=== PATIENT | male | born 1940 | race Caucasian/White ===

== ENCOUNTER 2016-12-10 21:15 | Inpatient (IN) ==
[2016-12-10] MEDS ORDERED: NS 1,000 ML IV PRN (22:11)
[2016-12-10 22:24] LABS: MANUAL DIFF NEEDED? NO
[2016-12-10 22:26] LABS: BASO% 0.7 % (0.0-0.8); EOS# 2.28 X1000 (0.0-0.7); EOS% 19.2 % (0.0-10.0); HEMATOCRIT 43.3 % (42.0-52.0); HEMOGLOBIN 13.1 g/dL (14.0-18.0); IMM GRAN# 0.03 X1000 (0.0-0.04); IMM GRAN% 0.3 % (0.0-0.5); LYMPH# 1.82 X1000 (1.2-3.4); LYMPH% 15.4 % (20.5-51.1); MCH 25.6 PG (27-31); MCHC 30.3 g/dL (33-37); MCV 84.7 FL (81-99); MONO# 0.61 X1000 (0.11-0.59); MONO% 5.1 % (1.7-9.3); MPV 9.7 FL (7.4-10.4); NEUT% 59.3 % (42.2-75.2); PLT 218 X1000 (130-400); RBC 5.11 XMIL (4.7-6.1)
[2016-12-10 22:45] LABS: ALBUMIN 3.9 g/dL (3.5-5.0); POTASSIUM 4.7 mmol/L (3.5-5.1); TOTAL BILIRUBIN 0.3 mg/dL (0.20-1.00); TOTAL PROTEIN 8.1 g/dL (6.3-8.3)
[2016-12-10 22:59] LABS: INR 0.98 (0.86-1.15); PROTIME 13.3 Seconds (12.1-15.5)
[2016-12-10 23:00] LABS: PTT PL 40.9 Seconds (22.6-43.9)
[2016-12-10] MEDS ORDERED: ZOFRAN PO PRN (23:03)
[2016-12-10] MEDS ORDERED: NS 1,000 ML IV ONE (23:03)
[2016-12-10 23:11] LABS: OCCULT BLOOD 1 POSITIVE (NEGATIVE)
--- NOTE | 2016-12-10 23:11 | PROVIDER DOCUMENTATION ---
This chart was entered by Roxy Fermin Scribe, acting as scribe for Clif Ortiz MD. HPI-Abdominal Pain/GI Problem - General Chief Complaint: GI Bleed Stated Complaint: MALE Time Seen by Provider: 12/10/16 22:27 Source: patient Allergies/Adverse Reactions: Patient Allergies Allergy/AdvReac Type Severity Reaction Status Date / Time Penicillins Allergy HIVES Verified 12/10/16 21:49 Sulfa (Sulfonamide Allergy Unknown Verified 12/10/16 21:49 Antibiotics) Home Medications: Home Medication List Medication Instructions Recorded Confirmed Last Taken Type Apixaban [Eliquis] 2.5 mg PO BID 12/10/16 12/10/16 12/10/16 History Aspirin 81 mg PO DAILY 12/10/16 12/10/16 12/10/16 History Budesonide/Formoterol Fumarate 1 puff IH BID 12/10/16 12/10/16 12/10/16 History [Symbicort 160-4.5 Mcg Inhaler] Carvedilol [Coreg] 3.125 mg PO BID 12/10/16 12/10/16 12/10/16 History Dexlansoprazole [Dexilant] 60 mg PO QHS 12/10/16 12/10/16 Unknown History Duloxetine HCl [Cymbalta] 30 mg PO DAILY 12/10/16 12/10/16 12/10/16 History Fluticasone 50 Mcg Nasal [place] 1 spray LISANDRO BID 12/10/16 12/10/16 12/10/16 History [Flonase] Isosorbide Mononitrate E.r. [Imdur] 60 mg PO BID 12/10/16 12/10/16 12/10/16 History Lamotrigine [Lamictal] 100 mg PO BID 12/10/16 12/10/16 12/10/16 History Lisinopril 20 mg PO DAILY 12/10/16 12/10/16 12/10/16 History Multivitamin [Multivitamins] 1 each PO DAILY 12/10/16 12/10/16 12/10/16 History Pregabalin [Lyrica] 100 mg PO BID 12/10/16 12/10/16 12/10/16 History SIMVAstatin [Zocor] 40 mg PO QHS 12/10/16 12/10/16 12/09/16 History Sotalol HCl [Sorine] 80 mg PO BID 12/10/16 12/10/16 12/10/16 History - History of Present Illness-ABD Nature of Presenting Problems: 76 year old M presents to the ED with a cc of diarrhea with an onset of last night. Pt states tonight around 1999 he noticed blood in his stool. Pt is on Eliquis. PT has a colonoscopy scheduled for Friday. Pt states that he had a CT on 11/25 and was told that he had thickening of the bowel. Severity in ED: reports: mild Onset/Duration: reports: 24 hours ago Timing: reports: still present Activities at Onset: reports: none Associated Symptoms: reports: diarrhea Emesis Description: reports: red blood Bruising or Bleeding Gums?: No Similar Symptoms Previously?: No Recently seen or treated by another doctor?: No Review of Systems - Adult - REVIEW OF SYSTEMS - ADULT Constitutional: denies: chills, fever Eyes: reports: no symptoms reported Ears, Nose, Mouth & Throat: reports: no symptoms reported Cardiovascular: reports: no symptoms reported Respiratory: reports: no symptoms reported Gastrointestinal: reports: diarrhea, rectal bleeding. denies: vomiting Genitourinary: denies: dysuria, hematuria Musculoskeletal: denies: muscle aches, muscle weakness Integumentary: reports: no symptoms reported Neurological: reports: no symptoms reported Psychiatric: reports: no symptoms reported Endocrine: reports: no symptoms reported Hematologic/Lymphatic: reports: no symptoms reported Allergic/Immunologic: reports: no symptoms reported All Other Systems: Reviewed and Negative Past History - Adult - PAST MEDICAL HISTORY-ADULT Review of Records: reports: Nursing Assessment Review, Medications Reviewed Major Childhood Illnesses: reports: denies history Cardiovascular: reports: cardiac disease, HTN, hyperlipidemia Respiratory: reports: sleep apnea Genitourinary: reports: other (CKF) - PRIOR SURGERIES/PROCEDURES Surgical/Procedure History: reports: CABG, pacemaker, back/neck - IMMUNIZATION STATUS Childhood Immunizations: See Nurse Assessment Flu Vaccine: See Nurse Assessment - SOCIAL HISTORY Smoking: non-smoker Substance Use: none/never Alcohol Use Frequency: never Physical Exam-General - PHYSICAL EXAM-ADULT Initial Vital Signs Reviewed: Yes - CONSTITUTIONAL General Appearance: appears well, alert, no apparent distress - RESPIRATORY Respiratory: chest non-tender, lungs clear, normal breath sounds - CARDIOVASCULAR Cardiovascular: normal peripheral pulses, regular rate, rhythm, no edema - GASTROINTESTINAL (ABDOMEN) Abdominal Exam: normal bowel sounds, tenderness (LLQ) - SKIN Integumentary: normal color, normal turgor, warm/dry - PSYCHIATRIC Psych/Mental Status: normal mood/affect, normal thought content, normal thought process, oriented x 3 Progress - PLAN OF CARE/RESULTS Progress/Plan/Lab Results: Vital Signs - 8 hr 12/10/16 21:42 Temperature 98.5 F Pulse Rate 70 Respiratory Rate 18 Blood Pressure 156/68 O2 Sat by Pulse Oximetry 94 L Laboratory Results - last 24 hr 12/10/16 12/10/16 12/10/16 22:10 22:10 22:10 WBC 11.85 H RBC 5.11 Hgb 13.1 L Hct 43.3 MCV 84.7 MCH 25.6 L MCHC 30.3 L RDW Std Deviation 16.5 H Plt Count 218 MPV 9.7 Immature Gran % (Auto) 0.3 Neut % (Auto) 59.3 Lymph % (Auto) 15.4 L [place] % (Auto) 5.1 Eos % (Auto) 19.2 H Baso % (Auto) 0.7 Immature Gran # (Auto) 0.03 Neut # (Auto) 7.03 H Lymph # (Auto) 1.82 [place] # (Auto) 0.61 H Eos # (Auto) 2.28 H Baso # (Auto) 0.08 Sodium 144 Potassium 4.7 Chloride 106 Carbon Dioxide 26 Anion Gap 12 BUN 47 H Creatinine 1.8 H Estimated GFR/1.73 m2 37 BUN/Creatinine Ratio 26 Glucose 170 H Calculated Osmolality 303 Calcium 9.0 Total Bilirubin 0.30 AST 16 ALT 31 Alkaline Phosphatase 205 H Total Protein 8.1 Albumin 3.9 Globulin 4.0 Albumin/Globulin Ratio 1.0 Blood Type O POSITIVE Orders Category Date Time Status Saline Loc DIRECTED Care 12/10/16 22:12 Active CBC WITH ELECTRONIC DIFF [HEME] Stat Lab 12/10/16 22:10 Completed COMPREHENSIVE METABOLIC PANEL [CHEM] Stat Lab 12/10/16 22:10 Completed OCCULT BLOOD NON-FECES PL Stat Lab 12/10/16 22:12 Uncollected OCCULT BLOOD SCREEN STOOL PL Stat Lab 12/10/16 22:12 Uncollected PROTIME WITH INR PL [COAG] Stat Lab 12/10/16 22:[address] [COAG] Stat Lab 12/10/16 22:10 Received TYPE & SCREEN [BBK] Stat Lab 12/10/16 22:10 Results 0.9% Sodium Chloride Inj [Ns] 1,000 ml Med 12/10/16 22:11 Active IV 125 mls/hr Result Diagrams: 12/10/16 22:10 12/10/16 22:10 - CONSULTS/PCP/HOSPITALIST Notification #1 *Consult/PCP/Hospitalist*: Dr. Flores(Hospitalist-[place]) Time Discussed: 22:49 Consult Disposition: other (admit to [facility]) #2 Consult: Dr. Jean-Baptiste(Hospitalist-[facility]) Time Discussed: 23:00 Consult Disposition: Admit Departure - Departure Time of Disposition Decision: 23:00 DIAGNOSIS: Lower GI bleeding Disposition: ADMITTED INPATIENT 09 Certified Medical Emergency: Emergent Condition: Stable Referrals and Follow-Ups: Mark Elliott MD [Primary Care Provider] - - Critical Care Note This patient required my direct & personal management of CC.: No This chart was documented by the indicated scribe, (Roxy Fermin Scribe) and accurately reflects the services I performed and decisions made by me, Clif Ortiz MD, as attested by the provider's signature.
[2016-12-11] MEDS ORDERED: APRESOLINE IV PRN (01:27)
[2016-12-11] MEDS ORDERED: ZOFRAN IV PRN (01:33)
[2016-12-11] MEDS ORDERED: TYLENOL PO PRN (01:33)
[2016-12-11] MEDS: ROCEPHIN 1 GM/NS 1 GM/50 ML IVPB IV SCH (02:41)
[2016-12-11] MEDS: FLAGYL 500 MG/NS 500 MG/100 ML IVPB IV SCH ×3 (02:41→17:41)
--- NOTE | 2016-12-11 04:21 | HISTORY AND PHYSICAL ---
PRIMARY CARE PROVIDER: Dr. Mark Elliott. CHIEF COMPLAINT: Rectal bleeding and diarrhea. HISTORY OF PRESENT ILLNESS: Mr. Jeffrey is a 76-year-old male with a past medical history most notable for extensive cardiac disease, with status post CABG in 1997. He also has a pacemaker placement, as well as a history of atrial fibrillation, currently on Eliquis. He also has a history of hypertension, hyperlipidemia, and chronic kidney disease. The patient reports that on 12/09, that he began having diarrhea. This was a normal brown color at that time. He reports that approximately 24 hours later on 12/10, he began having bloody stools. Due to this, the patient did present to the ER at [facility] for further evaluation. He was found to have Hemoccult-positive stool. The patient did just recently receive a CT thorax without contrast for further evaluation of a possible tracheoesophageal fistula. During the CT, there was noted per Radiology that there was significant wall thickening/colitis of the transverse colon and hepatic flexure. The patient had already been seen by Dr. Melchor, and was scheduled for a colonoscopy this coming Friday. The patient denies any recent opud-fsk-jzzhiiv medication use, though did report that he has had one new prescription of Dexilant that he started approximately 5 days ago. At this time, he denies any abdominal pain. He denies any nausea, vomiting. He also denies any fever, body aches, or chills. He has not had any recent travel, and denies being around anyone in the family who is sick, who has had similar symptoms as him. At this time, the patient was transferred to [facility] for admission and further evaluation of his gastrointestinal bleed, as well as colitis. REVIEW OF SYSTEMS: A 12-point review of systems was conducted with the patient. All were negative, except for pertinent positives mentioned above in HPI. PAST MEDICAL HISTORY: 1. Hypertension. 2. Hyperlipidemia. 3. Pacemaker placement. 4. Coronary artery disease, status post CABG in 1997. The patient denies any history of cardiac stents. 5. Abdominal aortic aneurysm. 6. Previous right lower extremity DVT. 7. Chronic kidney disease. 8. Gastroesophageal reflux disease. 9. Sleep apnea, reporting that he wears CPAP at night. 10. Spinal stenosis. 11. Neuropathy. 12. Kidney stones. 13. Asthma PAST SURGICAL HISTORY: 1. Coronary artery bypass graft in 1997. 2. Pacemaker placement. 3. Low back surgery for spinal stenosis. The patient does report that he has some residual weakness in the bilateral lower extremities since his surgery approximately 1 year ago. SOCIAL HISTORY: Patient currently lives at home with his . He has no past or present history of tobacco, alcohol, or illicit drug use. FAMILY HISTORY: Positive for his mother having a history of diabetes mellitus, congestive heart failure, and hypertension. His father had a history of stroke. He does have 7 siblings who have a medical history of heart disease, diabetes mellitus, as well as asthma. ALLERGIES: Patient reports allergies to penicillin, stating it caused him to have a rash. Also, an allergy to sulfa. HOME MEDICATIONS: 1. Eliquis 2.5 mg p.o. b.i.d. 2. Aspirin 81 mg p.o. daily. 3. Symbicort 160-2.5 mcg inhaler, 1 puff inhaled twice a day. 4. Coreg 3.125 mg p.o. b.i.d. 5. Dexilant 60 mg p.o. at bedtime. 6. Cymbalta 30 mg p.o. daily. 7. Flonase 1 spray in bilateral nares twice a day. 8. Imdur 60 mg p.o. b.i.d. 9. Lamictal 100 mg p.o. b.i.d. 10. Lisinopril 20 mg p.o. daily. 11. Multivitamin 1 p.o. daily. 12. Lyrica 100 mg p.o. b.i.d. 13. Zocor 40 mg p.o. at bedtime. 14. Sotalol 80 mg p.o. b.i.d. DIAGNOSTIC DATA AND LABORATORY RESULTS: White blood cell count 11.85, hemoglobin 13.1, hematocrit 43.3, platelet count 218,000. PT 13.3, INR 0.98. PTT is 40.9. Sodium 144, potassium 4.7, chloride 106, bicarbonate 26, BUN 47, creatinine 1.8, with GFR of 37. Glucose 170. Calcium 9. Total bilirubin 0.3, AST 16, ALT 31, alkaline phosphatase 205. Hemoccult stool was positive. Pending diagnostic studies at this time are stool studies, hemoglobin A1c, and EKG. PHYSICAL EXAMINATION: VITAL SIGNS: Temperature 97.7 degrees, heart rate 69, respirations 20, blood pressure 199/76. Oxygen saturation is 99% nasal cannula at 2 L. GENERAL: Mr. Jeffrey is a very pleasant 76-year-old male who is resting comfortably in the inpatient bed. He was awake, alert, and able to answer all questions appropriately. He was in no acute distress. HEENT: Head is atraumatic, normocephalic. Pupils are equal, round, reactive to light, 3 mm bilaterally and brisk. Sclerae were white. No lesions noted. Subconjunctivae were pink. Oral mucosa was moist. Oropharynx clear. NECK: Supple. Trachea midline. CARDIOVASCULAR: Patient has normal S1, S2. No murmurs, gallops, or rubs appreciated, with a regular rate and rhythm. Per the patient's cardiac monitor, he does have a paced rhythm noted. PULMONARY: Patient has symmetrical chest expansion bilaterally. Lung sounds in bilateral full barnett did have wheezing noted. ABDOMEN: Soft. Does not appear to be distended, but the patient does have a protuberant abdomen noted. He did have some tenderness upon palpation in the left lower quadrant. No rebound tenderness noted. Bowel sounds were present all 4 quadrants. Normoactive. EXTREMITIES: No cyanosis or clubbing noted. The patient did have some slight edema noted in his left lower extremity, approximately mid calf down. The patient did have +1 pitting edema noted in his right lower extremity from mid calf down. The pulse, motor, and sensory were intact in all extremities. Pedal pulses were 3+ bilaterally. Capillary refill was less than 3. INTEGUMENTARY: The patient's skin is pink, warm, dry, and intact. No lesions or sores noted. NEUROLOGICAL: Patient is alert and oriented x4. Cranial nerves 2-12 are grossly intact. ASSESSMENT AND PLAN: 1. Lower gastrointestinal bleed. For this, we have consulted Dr. Melchor with Gastroenterology, and we will await his evaluation and further recommendations. Patient has been placed on a clear liquid diet. We have collected a type and screen. We will closely monitor his hemodynamic status and repeat a hemoglobin and hematocrit in the morning. 2. Colitis. We will place the patient on Rocephin and Flagyl IV. At this time , we have not ordered any further imaging studies, given that the patient did just recently have a CT performed. We will wait until he is evaluated by Dr. Melchor with Gastroenterology, and await his further recommendations. We have also ordered for the patient to have stool studies performed. 3. Coronary artery disease, status post coronary artery bypass grafting. The patient denied any history of stents. At this time, we have held his aspirin as well. 4. History of atrial fibrillation. We will hold the patient's Eliquis at this time, and will continue his sotalol and his Coreg. 5. Hypertension. We will continue his lisinopril. 6. Hyperlipidemia. We will continue his Zocor. 7. Chronic kidney disease. Unfortunately, we do not have any previous laboratory results to compare his current kidney function to, though we will closely monitor his renal function and will renally dose medications as necessary, and continue to follow. 8. Neuropathy. Will continue his Lamictal and Lyrica. 9. Gastroesophageal reflux disease. The patient was previously taking Dexilant for this, though this was a new medication started approximately 5 days ago. Shortly after starting this medicine, the patient did have some diarrhea. Since this can be a side effect of this medication, we have stopped this at this time, and we will place the patient on Pepcid 20 mg p.o. daily instead and we will continue to follow. The patient will be placed on CIC with telemetry. He will have vital signs q.4 hours. Will do strict intake and output. We will provide DVT prophylaxis with SCDs. The patient does have a history of asthma, and does have some wheezing noted upon auscultation. We will place DuoNeb treatments q.4-6 hours p.r.n. as needed. Further orders and recommendations pending hospital course, diagnostic studies, and physician evaluation. Dictated by LIO Franklin for Wesley Rivera MD Seen and examined pt, discussed case with MANAGER COMMUNICATION. cc: Wesley Rivera MD [facility]
[2016-12-11] MEDS ORDERED: CALMOSEPTINE OINTMENT TOP PRN (04:25)
[2016-12-11 05:29] LABS: BASO% 0.5 % (0.0-0.8); HEMATOCRIT 38.1 % (42.0-52.0); HEMOGLOBIN 11.6 g/dL (14.0-18.0); IMM GRAN# 0.03 X1000 (0.0-0.04); IMM GRAN% 0.3 % (0.0-0.5); MANUAL DIFF NEEDED? NO; MCH 26.1 PG (27-31); MCHC 30.4 g/dL (33-37); MCV 85.6 FL (81-99); RBC 4.45 XMIL (4.7-6.1)
[2016-12-11 05:54] LABS: CALCIUM 9.1 mg/dL (8.8-10.2); POTASSIUM 5.6 mmol/L (3.5-5.1)
[2016-12-11 06:22] LABS: EOS% 15.5 % (0.0-10.0); LYMPH# 1.64 X1000 (1.2-3.4); MONO# 0.59 X1000 (0.11-0.59); MONO% 5.4 % (1.7-9.3); MPV 10.1 FL (7.4-10.4); NEUT% 63.3 % (42.2-75.2); PLT 158 X1000 (130-400)
--- NOTE | 2016-12-11 07:03 | EKG Report ---
Test Performed on : 12/11/2016 06:32:29 AM Test Reason : GI Bleed, Poss. Surgical Patient Blood Pressure : / mmHG Vent. Rate : 070 BPM Atrial Rate : 070 BPM P-R Int : 000 ms QRS Dur : 168 ms QT Int : 464 ms P-R-T Axes : 000 -77 086 degrees QTc Int : 501 ms Ventricular-paced rhythm Abnormal ECG No previous ECGs available Confirmed by Pelon MONGE, Quirino Woodward ([id number]) on 12/15/2016 12:36:48 PM
[2016-12-11] MEDS: THERA M PLUS PO SCH (08:10)
[2016-12-11] MEDS: PRINIVIL PO SCH (08:10)
[2016-12-11] MEDS: COREG PO SCH ×2 (08:10→21:07)
[2016-12-11] MEDS: LYRICA PO SCH ×2 (08:10→21:07)
[2016-12-11] MEDS: BETAPACE PO SCH ×2 (08:10→21:07)
[2016-12-11] MEDS: IMDUR PO SCH ×2 (08:11→21:07)
[2016-12-11] MEDS: FLONASE NAS SCH ×2 (08:11→21:39)
[2016-12-11] MEDS: CYMBALTA PO SCH (08:11)
[2016-12-11] MEDS: LAMICTAL PO SCH ×2 (08:11→21:07)
--- NOTE | 2016-12-11 08:41 | PROGRESS NOTE ---
DATE: 12/11/2016 SUBJECTIVE: Mr. Jeffrey was admitted late last night. Apparently he has had a couple days of loose stool and diarrhea. Yesterday evening notice bright red blood in the diarrhea. Denies any rectal pain or hemorrhoids. His doctor is Dr. Mark Elliott. He apparently is followed with Dr. Mario Melchor and was planning on doing a colonoscopy and EGD next week, I believe. PAST MEDICAL HISTORY: 1. Hypertension. 2. Hyperlipidemia. 3. Pacemaker placement. 4. Coronary artery disease, status post CABG in 1997. Denies any history of cardiac stents. 5. Abdominal aortic aneurysm. 6. Previous right lower extremity DVT. 7. Chronic kidney disease. 8. Gastroesophageal reflux disease. 9. Sleep apnea, reporting wears CPAP at night. 10. Spinal stenosis. 11. Neuropathy. 12. Kidney stones. PAST SURGICAL HISTORY: 1. Coronary artery bypass graft in 1997. 2. Pacemaker placement. 3. Low back surgery for spinal stenosis. The patient does report that he has some residual weakness in bilateral lower extremities since his surgery approximately a year ago. 4. Admitted with a lower gastrointestinal bleed. Dr. Mario Melchor is consulted. He has a little bit of colitis and he has been put on Rocephin and Flagyl. Recently had a CT performed so did not perform any further studies. I think previous CT suggested some colitis. Dr. Mario Melchor is following that. 5. Coronary artery disease status post coronary artery bypass grafting. Aware. 6. History of atrial fibrillation. We are holding his Eliquis at this time. 7. Hypertension. 8. Hyperlipidemia. 9. Chronic kidney disease, that we will watch. 10. Neuropathy. 11. Gastroesophageal reflux disease. 12. Lumbar sacral stenosis. He has had lower back surgery. Had some lower leg weakness, residual weakness, from a year ago. PHYSICAL EXAMINATION: General Appearance: On his exam today he was awake and alert. Afebrile. Temp 98.1 degrees, pulse 67, respirations 16, blood pressure 169/75. Lungs: Clear in all lung barnett. Cardiovascular: Regular rhythm and rate without murmur or S3. Abdomen: Soft. Skin: Is warm and dry. Weight 194 pounds. BLOOD WORK: White count 10,940, hematocrit 38, hemoglobin 11.6, platelet count a 158,000. Sodium 144, potassium 5.6, chloride 109. BUN 43, creatinine 1.7, blood sugar 167, calcium 9.1. ProTime 13.3, INR 9.8. PTT was 40. Stool sample positive. ASSESSMENT AND PLAN: As above. Review orders. I do not see any changes at this point. He is on Betapace 80 mg b.i.d., Zocor 40 mg at bedtime, Rocephin 1 g IV q.24 hours, Lyrica 100 mg b.i.d., multivitamin one a day, lisinopril 20 mg a day, Lamictal 100 mg b.i.d., isosorbide 60 mg b.i.d., Apresoline 10 mg IV q.6 hours p.r.n. hypertension, fluticasone nasal spray or Flonase 1 puff b.i.d., Flagyl 500 mg IV q.8 hours, Pepcid 20 mg a day, Cymbalta 30 mg a day, Coreg 3.125 mg b.i.d., Symbicort 1 puff b.i.d. cc: Unruly Amin MD
[2016-12-11] MEDS ORDERED: PEPCID PO SCH (09:00)
[2016-12-11] MEDS: SYMBICORT 160/4.5 MICROGM INHALER INH SCH ×2 (13:35→19:36)
--- NOTE | 2016-12-11 15:52 | CONSULTATION ---
DATE OF CONSULTATION: 12/11/2016 REQUESTING PHYSICIAN: Unruly Amin MD. PRIMARY CARE DOCTOR: Mark Elliott MD. REASON FOR CONSULTATION: Blood in the stool and anemia. HISTORY OF PRESENT ILLNESS: Mr. Jeffrey is a 76-year-old male who has a known history of atrial fibrillation status post pacemaker placement, coronary artery disease status post CABG in 1997, abdominal aortic aneurysm being followed by Dr. Snyder. He is on chronic aspirin 81 mg a day and Eliquis at home. The patient developed an upset stomach which is described as cramping in the upper abdomen along with change in bowel habits along with diarrhea. Yesterday the patient was noted to have light red color liquid stool along with incontinence. This was noted by patient's as well and patient was brought to the ER. The patient was found to have positive Hemoccult stool. The patient since being in the hospital has felt better. His hemoglobin and hematocrit dropped but he did not require a blood transfusion. He denied any nausea, vomiting, or vomiting blood. PAST MEDICAL HISTORY: 1. Hypertension. 2. Hyperlipidemia. 3. Coronary artery disease. 4. Abdominal aortic aneurysm. 5. Right lower extremity DVT. 6. Chronic kidney disease. 7. Gastroesophageal reflux. 8. Sleep apnea. 9. Spinal stenosis. 10. Neuropathy. 11. Kidney stones. PAST SURGICAL HISTORY: 1. Coronary bypass graft and 1998. 2. Pacemaker placement. 3. CABG. 4. Low back surgery for spinal stenosis. 5. Patient had a EGD and colonoscopy 7 years ago. SOCIAL HISTORY: He currently lives at home with his . The is currently present at bedside. No history of alcohol, tobacco or illicit drug use. He denies any fevers, rigors, chills, chest pain, shortness of breath, dyspnea at rest. Denies any genitourinary complaints. He does have a history of chronic arthritis of the back and some weakness in the lower extremities. FAMILY HISTORY: Noncontributory. ALLERGIES: Penicillin and sulfa. HOME MEDICATIONS: 1. Eliquis 2.5 mg p.o. b.i.d. 2. Aspirin 81 every day. 3. Symbicort 1 puff inhaled twice daily. 4. Coreg 3.125 mg p.o. b.i.d. 5. Dexilant 60 mg at bedtime. 6. Cymbalta 30 mg p.o. daily. 7. Flonase 1 spray bilateral twice daily. 8. Imdur 60 mg p.o. b.i.d. 9. Lamictal 100 mg p.o. b.i.d. 10. Lisinopril 20 mg p.o. daily. 11. Multivitamin once daily. 12. Lyrica 100 mg p.o. b.i.d. 13. Zocor 40 mg p.o. 1 at bedtime. 14. Sotalol 80 mg p.o. b.i.d. MEDICATIONS IN HOSPITAL: 1. Tylenol #2. 2. Budesonide/formoterol 1 puff inhaled b.i.d. 3. Coreg 3.125 mg b.i.d. 4. Cymbalta 30 mg p.o. once daily. 5. Flagyl 5 mg IV q. 8 hours. 6. Fluticasone 50 mcg inhaled b.i.d. 7. Hydralazine 10 mg IV q.6 hours. 8. Isosorbide Mononitrate 60 mg p.o. b.i.d. 9. Lamictal 100 mg p.o. b.i.d. 10. Lisinopril 20 mg p.o. once daily. 11. Menthol/zinc oxide ointment topical as needed. 12. Multivitamin once daily. 13. Zofran 4 mg IV every 4 hours as needed. 14. Protonix 40 mg IV q.12 hours. 15. Lyrica 100 mg 1 p.o. b.i.d. 16. Ceftriaxone 1 g IV 24 hours. 17. Zocor 40 mg p.o. at bedtime. 18. Sotalol 80 mg p.o. b.i.d. 19. IV fluids with normal saline. 20. He is on a clear liquid diet. PHYSICAL EXAMINATION: Weight/height: Temperature 98.1, pulse of 61, respiratory 18, blood pressure of 169/75, saturating 90% on room air. Body weight of 194 pounds 6.4 ounces. BMI of 27 kg/m2. General Appearance: Moderately nourished, lying in bed, in no acute distress. HEENT: Pale conjunctivae. No icterus. Pupils equal, reactive to light. Neck: Supple. Cardiac: Regular rate and rhythm. No murmur. Abdomen: Soft, nontender, nondistended bowel sounds. No rebound. Extremities: No cyanosis or clubbing. Neurologic: Alert, awake, oriented. LABS: Hemoglobin and hematocrit is 11.6 and 38.1, white count of 10.94, platelet count of 158,000. MCV of 85.6, INR of 0.98, PT of 13.3, PTT of 40.9, sodium 144, potassium 5.6, chloride 109, bicarbonate 26, anion gap 9, BUN of 40, creatinine 1.7, glucose of 167, calcium 9.1, total bilirubin is 0.30, AST 16, ALT 31, and total protein is 8.1, albumin of 3.9. Stool for occult blood was positive. DIAGNOSTIC: 1. He had a chest CT done on 11/23/2016. At that time it picked up significant wall thickening of the transverse colon, especially the hepatic flexure, compatible with some chronic colitis. 2. No free fluid or free air noted. 3. No mass or adenopathy. 4. Some normal size today left nodes on the right side noted. There are CABG changes. Dual chamber pacemaker in good position. There are small cysts in the thyroid gland which were normal in size. The air in the esophagus was normal. There is heterogeneous attenuation of the lungs compatible with scattered small airway disease. 5. Small granuloma in the upper lobes bilaterally. No infiltrates. There are moderate degenerative changes of the spine. No acute or suspicious bony lesions noted. IMPRESSION AND PLAN: 1. Abdominal cramping with diarrhea that felt like an upset stomach with a positive Hemoccult and blood in the stool along with elevated BUN and creatinine suspicious for upper gastrointestinal bleeding. The patient is on aspirin, Eliquis which makes him prone to have peptic ulcer disease. We need to evaluate for that. 2. Previous CT scan of the chest done on 11/23/2016 showed evidence of thickening of the wall of the hepatic flexure, transverse colon suggestive of chronic colitis. 3. Mild anemia. 4. Coronary artery disease status post coronary artery bypass graft, on aspirin and Eliquis being monitored by Dr. Snyder. 5. History of reflux disease. RECOMMENDATIONS: 1. We will keep a close eye on patient's hemoglobin and hematocrit. 2. We will check a CBC in the morning. Patient's aspirin and Eliquis have been held so far since he is in the hospital. 3. We will check stool studies. So far the stool studies are negative for C. difficile toxin A and B, stool for white cells are few, stool culture is pending and stool for occult blood was positive. Try patient on Protonix IV b.i.d. 4. We will schedule patient for EGD tomorrow to evaluate upper GI source of bleeding. 5. We will continue IV fluids and clear liquid diet for now. If the EGD is negative, he will definitely need a colonoscopy. 6. The patient will continue on his home medications for now other than blood thinners until his hematocrit stabilizes. 7. The above plan was discussed with the patient and family. All questions were answered. cc: MD Mark Rebolledo MD Allen J. Schmidt, MD Luis N. Villanueva, MD MTDD
[2016-12-11] MEDS: PROTONIX IV SCH (16:23)
[2016-12-11] MEDS: SODIUM CHLORIDE 0.9% INJ SCH (16:23)
[2016-12-11] MEDS: ZOCOR PO SCH (21:07)
[2016-12-12] MEDS: SODIUM CHLORIDE 0.9% INJ SCH ×2 (02:26→14:54)
[2016-12-12] MEDS: PROTONIX IV SCH ×2 (02:26→14:54)
[2016-12-12] MEDS: FLAGYL 500 MG/NS 500 MG/100 ML IVPB IV SCH ×3 (02:27→17:49)
[2016-12-12] MEDS: ROCEPHIN 1 GM/NS 1 GM/50 ML IVPB IV SCH (02:27)
[2016-12-12] MEDS: BETAPACE PO SCH ×2 (08:00→20:15)
[2016-12-12] MEDS: COREG PO SCH ×2 (08:00→20:15)
[2016-12-12] MEDS ORDERED: D50W SYRINGE IV ONE (08:01)
[2016-12-12] MEDS ORDERED: HUMULIN R IV ONE (08:01)
[2016-12-12] MEDS ORDERED: SODIUM BICARBONATE 8.4% IV PUSH ONE (08:01)
[2016-12-12] MEDS: IMDUR PO SCH ×2 (08:01→20:15)
[2016-12-12] MEDS: PRINIVIL PO SCH (08:01)
--- NOTE | 2016-12-12 08:33 | PROGRESS NOTE ---
DATE: 12/12/2016 SUBJECTIVE: Mr. Jeffrey had a good night. He is having some pain in his left hand at the 3rd metatarsal that is tender and it appears to be consistent with gout. OBJECTIVE: Vital signs: Temperature 97.5 degrees, pulse 66, respirations 20, blood pressure 166/74. HEENT: The pupils are equal, round. Lungs: Clear in all lung barnett. Abdomen: Soft. Skin is warm and dry. Urine output 2200 mL. LAB: Reviewed from this morning. White count 10,940, hematocrit 38, platelet count a 158,000. Sodium 144, potassium 5.6, chloride 109, bicarb 26, BUN 43, creatinine 1.7. ASSESSMENT AND PLAN: 1. Abdominal cramping and diarrhea. [place] like an upset stomach with positive Hemoccult. Blood in the stool. Elevated BUN and creatinine, suspicious for upper gastrointestinal bleeding. Patient is on aspirin and Eliquis, which has been held. The plan is to do an esophagogastroduodenoscopy this morning. 2. Previous CT of the chest done on 11/23/2016 showed evidence of thickening of the wall of the hepatic flexure and transverse colon, suggestive of chronic colitis. So, the plan is to do a colonoscopy, I think tomorrow. 3. Mild anemia. 4. Coronary artery disease status post coronary bypass graft. He is on aspirin and Eliquis which has been held. 5. History of reflux disease. 6. Inflammation in the left 3rd metatarsal. We will need to avoid nonsteroidal medications right now. I May give him some IV Solu-Medrol and see if that will help. 7. Chronic renal insufficiency. Serum creatinine 1.7. Note, his potassium was a little bit high. Anesthesia wanted us to address this before he goes to esophagogastroduodenoscopy; so I will give him 1 amp of D50 and 10 units of insulin and an amp of bicarb and repeat his basic metabolic profile. cc: Unruly Amin MD
[2016-12-12] MEDS: SYMBICORT 160/4.5 MICROGM INHALER INH SCH ×2 (09:11→19:40)
[2016-12-12] MEDS ORDERED: DIPRIVAN 1% ONE (10:35)
[2016-12-12] MEDS ORDERED: XYLOCAINE-MPF 2% ONE (10:45)
--- NOTE | 2016-12-12 10:54 | OPERATIVE NOTE ---
PROCEDURE DATE: 12/12/2016 DATE OF SERVICE: 12/12/2016. REFERRING PHYSICIAN: Dr. Palencia. PRIMARY CARE DOCTOR: Dr. Elliott. PROCEDURE: Esophagogastroduodenoscopy. PREOPERATIVE DIAGNOSES: 1. Maroon stools. 2. Anemia. 3. History of coronary disease, atrial fibrillation on aspirin 81 mg a day and Eliquis 2.5 b.i.d. 4. History of reflux disease. POSTOPERATIVE DIAGNOSES: 1. Mild candidal esophagitis of distal esophagus. 2. Z-line visualized at 41 cm. 3. Evidence of gastritis in the body and antrum, erosive type, moderate degree. Retroflexion revealed normal fundus, cardia, incisura. Bile in the stomach, small amount. 4. Normal duodenal bulb, second portion of duodenum. 5. Prominent ampulla noted. ESTIMATED BLOOD LOSS: None. COMPLICATIONS: None. ANESTHESIA: Monitored anesthesia care per the anesthesiologist. SPECIMEN: None. DESCRIPTION OF PROCEDURE IN DETAIL: After informed consent, patient and family explained the risks, benefits, indications, alternatives, the patient agree for EGD. The patient was brought to the OR. He was turned in the left lateral position. A bite block was placed in patient's mouth. After adequate monitored anesthesia care, the operative scope was introduced and was traversed all the way to the second portion of the duodenum. The esophagus was normal at the proximal and middle third. This did not show evidence of whitish exudates on the surface of the esophagus suggesting Renae esophagitis. The Z-line was at 41 cm. There was no evidence of varices or ulcers. The stomach showed evidence of some bile which was suctioned out. There was evidence of erythema, friability, and erosions in the body suggesting erosive gastritis. Retroflexion revealed normal fundus, cardia, incisura. The duodenal bulb and second portion of duodenum appeared normal. The ampulla was prominent. There was noted no active bleeding , fresh or old blood noted in the entire EGD. The air was withdrawn from the scope. The patient tolerated the procedure well and monitored in the OR in stable condition. I discussed the findings with the patient's family in the waiting area and all questions answered. RECOMMENDATION: The patient will be on clear liquid diet today. We will start him on GoLYTELY at 12 noon and we will make him n.p.o. past midnight and schedule for colonoscopy tomorrow morning. Will check CBC today and check it every 6 hours. Type and cross, and transfuse to keep hematocrit more than 27%. We will keep on Protonix twice daily. We will hold the blood thinners for now until hematocrit stabilizes. Stool studies have so far been unrevealing. There was a questionable colitis seen on last imaging in November. It could be ischemic colitis; will investigate further with a colonoscopy scheduled for tomorrow. Further recommendations follow pending above. cc: MD Bhavin Rebolledo MD John V. Irle, MD MTDD
[2016-12-12] MEDS: CYMBALTA PO SCH (11:09)
[2016-12-12] MEDS: LYRICA PO SCH ×2 (11:09→20:15)
[2016-12-12] MEDS: THERA M PLUS PO SCH (11:09)
[2016-12-12] MEDS: LAMICTAL PO SCH ×2 (11:10→20:15)
[2016-12-12] MEDS: SOLU-MEDROL IV SCH ×3 (11:10→23:50)
[2016-12-12] MEDS: FLONASE NAS SCH ×2 (11:10→20:14)
[2016-12-12] MEDS ORDERED: GOLYTELY PO ONE (16:45)
[2016-12-12 17:50] LABS: BASO% 0.4 % (0.0-0.8); EOS# 0.14 X1000 (0.0-0.7); EOS% 1.8 % (0.0-10.0); HEMOGLOBIN 11.8 g/dL (14.0-18.0); LYMPH# 0.65 X1000 (1.2-3.4); LYMPH% 8.5 % (20.5-51.1); MANUAL DIFF NEEDED? YES; MCH 25.5 PG (27-31); MCHC 30.3 g/dL (33-37); MCV 84.4 FL (81-99); MONO# 0.06 X1000 (0.11-0.59); MONO% 0.8 % (1.7-9.3); MPV 9.4 FL (7.4-10.4); NEUT% 88.5 % (42.2-75.2); PLT 169 X1000 (130-400); RBC 4.62 XMIL (4.7-6.1)
[2016-12-12 17:59] LABS: LYMPHS 12 % (21-51)
[2016-12-12] MEDS: ZOCOR PO SCH (20:15)
[2016-12-13 00:05] LABS: BASO% 0.1 % (0.0-0.8); HEMATOCRIT 36.4 % (42.0-52.0); HEMOGLOBIN 11.4 g/dL (14.0-18.0); IMM GRAN# 0.03 X1000 (0.0-0.04); IMM GRAN% 0.4 % (0.0-0.5); LYMPH# 0.79 X1000 (1.2-3.4); LYMPH% 11.2 % (20.5-51.1); MANUAL DIFF NEEDED? YES; MCH 26.1 PG (27-31); MCHC 31.3 g/dL (33-37); MCV 83.5 FL (81-99); MONO# 0.07 X1000 (0.11-0.59); MPV 9.4 FL (7.4-10.4); NEUT% 87.3 % (42.2-75.2); PLT 180 X1000 (130-400); RBC 4.36 XMIL (4.7-6.1)
[2016-12-13 00:25] LABS: LYMPHS 10 % (21-51); MONO 4 % (1-9)
[2016-12-13 00:27] LABS: LARGE PLATELETS OCCASIONAL; POLYCHROM OCCASIONAL
[2016-12-13] MEDS: ROCEPHIN 1 GM/NS 1 GM/50 ML IVPB IV SCH (02:21)
[2016-12-13] MEDS: PROTONIX IV SCH ×2 (02:22→13:37)
[2016-12-13] MEDS: FLAGYL 500 MG/NS 500 MG/100 ML IVPB IV SCH ×3 (03:40→17:40)
[2016-12-13 06:34] LABS: BASO% 0.1 % (0.0-0.8); HEMATOCRIT 37.9 % (42.0-52.0); HEMOGLOBIN 11.9 g/dL (14.0-18.0); LYMPH% 10.6 % (20.5-51.1); MANUAL DIFF NEEDED? YES; MCHC 31.4 g/dL (33-37); MCV 82.8 FL (81-99); MONO# 0.08 X1000 (0.11-0.59); MONO% 1.1 % (1.7-9.3); MPV 9.9 FL (7.4-10.4); NEUT% 88.2 % (42.2-75.2); PLT 167 X1000 (130-400); RBC 4.58 XMIL (4.7-6.1)
[2016-12-13 07:05] LABS: BANDS 10 % (0-1); LYMPHS 4 % (21-51); MONO 2 % (1-9)
[2016-12-13] MEDS: SYMBICORT 160/4.5 MICROGM INHALER INH SCH (07:19)
[2016-12-13] MEDS: FLONASE NAS SCH (08:09)
[2016-12-13] MEDS: LYRICA PO SCH ×3 (08:10→13:42)
[2016-12-13] MEDS: SOLU-MEDROL IV SCH ×2 (08:11→16:06)
[2016-12-13] MEDS: THERA M PLUS PO SCH ×3 (08:12→13:42)
[2016-12-13] MEDS: COREG PO SCH ×3 (08:12→13:41)
[2016-12-13] MEDS: IMDUR PO SCH ×3 (08:12→13:41)
[2016-12-13] MEDS: LAMICTAL PO SCH ×3 (08:12→13:41)
[2016-12-13] MEDS: PRINIVIL PO SCH ×3 (08:12→13:42)
[2016-12-13] MEDS: BETAPACE PO SCH ×3 (08:12→13:40)
[2016-12-13] MEDS: CYMBALTA PO SCH ×3 (08:12→13:42)
--- NOTE | 2016-12-13 09:43 | PROGRESS NOTE ---
DATE: 12/13/2016 SUBJECTIVE: He has had a rough night. He got all of his GoLYTELY down and is ready for colonoscopy. OBJECTIVE: Vital Signs: Temp 98.1 degrees, pulse 60, respirations 18, blood pressure 185/74 pounds. HEENT: Pupils are equal. CVP less than 6 cm. Lungs: Clear in all lung barnett. Cardiovascular: Regular rhythm and rate without murmurs or S3. : Urine output 2700 mL. LAB: White count 7560, hematocrit 37. Platelet count 167,000. Sodium 144, potassium 5.6, chloride 109, bicarb 26, BUN 43, creatinine 1.7. ASSESSMENT AND PLAN: 1. Abdominal cramping and diarrhea. Upset stomach, positive occult, blood in stool. Elevated BUN and creatinine suspicious for upper gastrointestinal bleed. 2. He has had an esophagogastroduodenoscopy. Found gastritis and duodenitis. The patient was on aspirin and Eliquis. This was held for a short time. He is going to get a colonoscopy today. He had a previous CT of the chest done on 11/23/2016 that showed evidence of thickening of the wall of the hepatic flexure and transverse colon suggestive of chronic colitis 3. Anemia. He is on iron. 4. Coronary artery disease status post coronary artery bypass graft. He is on aspirin and Eliquis, which is on hold at present time. 5. If colonoscopy is okay, he may get to go home today. We will put him back on his aspirin and Eliquis, probably start that back in another week. 6. History of gastroesophageal reflux disease. 7. History of inflammation of the left 3rd metatarsal. We gave him some Solu-Medrol. 8. Chronic renal insufficiency or chronic kidney disease. Serum creatinine 1.7. Looking back to his creatinine, it looks like that is going to be his baseline. cc: Unruly Amin MD
[2016-12-13 10:24] LABS: BASO% 0.1 % (0.0-0.8); EOS# 0.01 X1000 (0.0-0.7); EOS% 0.1 % (0.0-10.0); HEMATOCRIT 36.2 % (42.0-52.0); HEMOGLOBIN 11.6 g/dL (14.0-18.0); IMM GRAN# 0.02 X1000 (0.0-0.04); IMM GRAN% 0.2 % (0.0-0.5); LYMPH# 0.93 X1000 (1.2-3.4); LYMPH% 9.8 % (20.5-51.1); MANUAL DIFF NEEDED? NO; MCH 26.4 PG (27-31); MCV 82.5 FL (81-99); MONO# 0.19 X1000 (0.11-0.59); MPV 9.7 FL (7.4-10.4); NEUT% 87.8 % (42.2-75.2); PLT 161 X1000 (130-400); RBC 4.39 XMIL (4.7-6.1)
[2016-12-13] MEDS ORDERED: PHENERGAN ONE (11:46)
[2016-12-13] MEDS ORDERED: FENTANYL ONE (11:46)
[2016-12-13] MEDS ORDERED: DIPRIVAN 1% ONE (11:47)
--- NOTE | 2016-12-13 12:05 | OPERATIVE NOTE ---
PROCEDURE DATE: 12/13/2016 PROCEDURE: Colonoscopy and biopsy. PREOPERATIVE DIAGNOSES: Gastrointestinal bleed. POSTOP DIAGNOSIS: Colitis in the ascending colon all the way to distal transverse colon likely inflammatory bowel disease. DESCRIPTION OF PROCEDURE: After informed consent and adequate intravenous sedation by Anesthesia, the scope introduced into the rectum and advanced all the way into the cecum. The patient has mild to moderate colitis with mucosal friability and bleeding to touch extending from the cecum to the transverse colon. Stopped abruptly and other rest of the colon is completely normal. He does not have any pseudomembranes. Does not have a typical appearance of ischemic colitis. The colitis is circumferential. The entire wall is exactly the same and the appearance is more suggestive of chronic ulcerative colitis. Biopsies were obtained. The scope was withdrawn. The patient tolerated the procedure and was transported back to recovery area in satisfactory condition. cc: Mario Melchor MD
[2016-12-13] MEDS ORDERED: XYLOCAINE-MPF 2% ONE (13:03)
[2016-12-13] MEDS ORDERED: NS 500 ML ONE (13:03)
[2016-12-13] MEDS: SODIUM CHLORIDE 0.9% INJ SCH (13:37)
[2016-12-13 16:36] VITALS: BP 183/70
[2016-12-13 16:49] LABS: BASO% 0.1 % (0.0-0.8); EOS# 0.39 X1000 (0.0-0.7); EOS% 3.3 % (0.0-10.0); HEMATOCRIT 36.7 % (42.0-52.0); HEMOGLOBIN 11.5 g/dL (14.0-18.0); IMM GRAN# 0.07 X1000 (0.0-0.04); IMM GRAN% 0.6 % (0.0-0.5); LYMPH# 0.77 X1000 (1.2-3.4); LYMPH% 6.4 % (20.5-51.1); MANUAL DIFF NEEDED? NO; MCH 25.7 PG (27-31); MCHC 31.3 g/dL (33-37); MCV 82.1 FL (81-99); MONO# 0.33 X1000 (0.11-0.59); MONO% 2.8 % (1.7-9.3); MPV 10.3 FL (7.4-10.4); NEUT% 86.8 % (42.2-75.2); PLT 159 X1000 (130-400); RBC 4.47 XMIL (4.7-6.1)
--- NOTE | 2016-12-13 20:52 | DISCHARGE SUMMARY ---
ADMISSION DATE: 12/10/2016 DISCHARGE DATE: 12/13/2016 PRIMARY CARE PHYSICIAN: aMrk Elliott MD. HISTORY OF PRESENT ILLNESS: This is a 76-year-old with past medical history most notable for extensive cardiac disease status post CABG in 1997. He also had a pacemaker placement as well as history of atrial fibrillation, currently on Eliquis. He also has a history of hypertension, hyperlipidemia, chronic kidney disease. Patient reports that on 12/09/2016 he began having diarrhea with normal brown color at that time. He reports approximately 24 hours later, on 12/10, he began having bloody stools due to this. Patient presented to the Emergency Room at [facility] for further evaluation. He was found to have Hemoccult-positive stool. 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 During the CT there was noted per Radiology significant thickening colitis in transverse colon and hepatic flexure. Patient already had seen Dr. Melchor and was scheduled for colonoscopy the coming Friday. He denied any recent [id number] medication use though did report that he had a new prescription of duloxetine that he started approximately 5 days ago. At this time he denies any abdominal pain. At the time of admission he denies any nausea or vomiting. He also denies any fever or body aches. He has not had any recent travel. He denies being around anyone in the family who is sick with similar symptoms. He has not had any recent antibiotics. PAST MEDICAL HISTORY: 1. Hypertension. 2. Hyperlipidemia. 3. Pacemaker placement. 4. Coronary artery disease status post CABG in 1997. The patient denies any history of cardiac stents. 5. Abdominal aortic aneurysm. 6. Previous right lower extremity DVT. 7. Chronic kidney disease. 8. Gastroesophageal reflux disease. 9. Sleep apnea with CPAP at night. 10. Spinal stenosis. 11. Neuropathy. 12. Kidney stones. 13. Asthma. HOSPITAL COURSE: Patient admitted and had no further sign of bleeding. He underwent EGD. Dr. Dumont, assistant construction superintendent, evaluated him and with his history of abdominal cramping, diarrhea, upset stomach, positive Hemoccult blood, elevated BUN and creatinine, suspicious for upper gastrointestinal bleeding. Previous CT scan done on 11/23/2016 showed evidence of colitis or wall thickening, hepatic flexure, transverse colon suggestive of chronic colitis. He has mild anemia. He was scheduled for EGD. EGD was performed and found gastritis, duodenitis, mild candidal esophagitis/distal esophagus, normal duodenal bulb, but evidence of gastritis in the body and antrum erosive type moderate degree, retroflexion revealed normal fundus, cardiac incisura, bile in the stomach small amount. Patient underwent colonoscopy on 12/13/2016 with the finding of colitis of the descending colon all way to the distal transverse colon likely inflammatory bowel disease. The patient had no further bleeding and was anxious to go home. Discharged. Biopsy was obtained and waiting on results. The patient was discharged with Coreg 3.125 mg b.i.d., Symbicort 160/4.5, 1 puff b.i.d., Cymbalta 30 mg daily, Flonase 1 puff b.i.d., Imdur 60 mg b.i.d., Lamictal 100 mg b.i.d., Prinivil 20 mg daily, I will let him go home on a [employer] Dosepak. He is on Flagyl 500 mg which we will give t.i.d., multivitamin 1 daily, Protonix 40 mg p.o. twice a day, Lyrica 100 mg b.i.d., Zocor 40 mg a day, Betapace 80 mg b.i.d. He will follow up with Dr. Melchor hopefully next week and follow up with Dr. Elliott as well. cc: Unruly Amin MD
== END 2016-12-13 20:00 | disposition home or self-care (01) ==
LOC: P.ED 21:15 → 3S 21:15 → SUATTDRO 23:20 → 3S 12-11 09:54 → 4N 12-12 20:27
PROVIDERS: ATTEND Emergency Medicine